=== PATIENT | female | born 1985 | race Hispanic/Latino ===

== ENCOUNTER 2022-01-08 11:15 | Day surgery (SDC) | payer BC, SELFPAY ==
--- NOTE | 2022-01-07 12:30 | PCM.HP.BLA ---
History and Physical Date of Admission: 01/08/22 HPI: The patient is a 36 year old female presenting for pre-operative visit. She is scheduled for Hysteroscopy D&C, for AUB on 01/08/22. Procedure discussed along with risks, benefits and complications. Other alternatives discussed for management. Consent form signed? Yes. ? ? PAST MEDICAL HISTORY PAST MEDICAL HISTORY Diagnosis Date ? Essential hypertension ? ? ? PAST SURGICAL HISTORY PAST SURGICAL HISTORY Procedure Laterality Date ? ADENOIDECTOMY SECONDARY AGE 10/> ? CURRENT MEDICATIONS Current Outpatient Medications Medication Sig Dispense Refill ? losartan (COZAAR) 25 mg tablet Take 1 tablet by mouth once daily. 90 tablet 3 ? EPINEPHrine (EPIPEN) 0.3 mg/0.3 mL auto-injector Inject into thigh as directed. May repeat once if necessary. ? ? ? miSOPROStol (CYTOTEC) 200 mcg tablet Take 1 tablet by mouth as directed. Insert one tablet vaginally the night before procedure. Take one tablet orally the morning of procedure. (Patient not taking: Reported on 01/07/2022 ) 2 tablet 0 ? medroxyPROGESTERone (PROVERA) 10 mg tablet Take 1 tablet by mouth once daily. (Patient not taking: Reported on 01/07/2022 ) 10 tablet 0 ? No current facility-administered medications for this visit. ? ? ALLERGIES: Nickel ? PERSONAL HISTORY: SOCIAL HISTORY Social History ? Tobacco Use ? Smoking status: Never Smoker ? Smokeless tobacco: Never Used Substance Use Topics ? Alcohol use: Yes ? ? Comment: 3-4 beverages on occasion, no routine use ? Drug use: Not on file ? FAMILY HISTORY: FAMILY HISTORY FAMILY HISTORY Problem Relation Age of Onset ? Hypothyroidism Mother ? ? other (other) Father ? ? Hypertension Father ? ? Hypertension Sister ? ? Hypertension Brother ? ? Hypertension Brother ? ? Lung Cancer Maternal Grandmother ? ? Breast Cancer Maternal Aunt ? ? Breast Cancer Maternal Aunt ? ? ? REVIEW OF SYMPTOMS: GENERAL: denies fevers or chills ENDOCRINOLOGY: has not been on steroids Cardiology : denies palpitations or chest pain Respiratory: denies SOB or cough Hematology: denies history of prolonged bleeding or easy bruising or VTE Allergy: Denies history of personal or family history of allergy to anesthesia ? PHYSICAL EXAMINATION: ? VITALS: There were no vitals taken for this visit. ? GENERAL: The patient is well nourished, well hydrated in no acute distress. , The patient is oriented to time, place, and person. NECK: Supple. No lynphadenopathy, normal thyroid, no thyromegaly. LUNGS: Clear to auscultation bilaterally. no wheezes, rhonchi or rales HEART: Regular rate and rhythm, Normal heart sounds and No murmurs or gallops ? ? IMPRESSION: AUB- only spotting in 18 months,stenotic cervix ? PLAN: The risks/benefits/alternatives and personal involved for the planned hsyteroscopy D&C with cervical dilation were reviewed with the patient. Her questions were answered to her satisfaction and she desires to proceed. Consent was signed. I reviewed with her postop instructions and expectations. ? ? I have reviewed and updated past medical and surgical history, medications and allergies Assessment & Plan Assessment/Plan (1) Abnormal uterine bleeding (AUB): (2) Stenosis, cervix:
[2022-01-08] VITALS (7 sets, daily range): BP systolic 132–151; BP diastolic 86–108; PULSE 58–74; RESP 16–18; TEMP 36.1–36.9; O2SAT 97–100; BMI 27.3
[2022-01-08] MEDS: Acetaminophen 500 MG Tablet 1000 MG PO (11:53)
[2022-01-08 11:55] LABS: Internal QC Validated? YES +Cl - CLEAR BKGD
[2022-01-08 11:58] LABS: Pregnancy, Urine Negative Negative
[2022-01-08] MEDS: Lactated Ringers 1,000 ML 70 ML IV (11:58)
[2022-01-08] MEDS: Ketorolac 30 MG/ML Syringe IV (11:59)
--- NOTE | 2022-01-08 13:00 | EMB_PTH ---
PATIENT: IVONNE RAY LOC: [facility] – [place] U#:[id number] AGE/SX: 36/F ROOM: RE01/08/[address]: Dr. Breann Eaton MD : [id number] BED: DIS: 01/08/2022 SPEC #: [id number] RECD: 01/08/22 14:01 STATUS: MAYE CARRASQUILLO #: [id number] NENITA: 01/08/22 13:[address]: Breann Eaton DEPT: SURGICAL PATHOLOGY RECD BY: Kaya Barroso ENTERED: 01/09/22 09:14 SP TYPE: ENDOM BX/C OMAR DR: CESAR Vaca Tissues: Endometrium, NOS Procedures: Surgery Specimen Level IV HEADER OPERATION: Hysteroscopy, dilation and curettage, cervical dilation PRE-OP DIAGNOSIS: Abnormal uterine bleeding, stenosis cervix TISSUE SUBMITTED: Endometrial curettings MICROSCOPIC DIAGNOSIS Endometrium, curettings: Disordered proliferative endometrium to focal simple hyperplasia without atypia. AM:tere 01/13/2022 MICROSCOPIC DESCRIPTION Slides are reviewed. GROSS DESCRIPTION Received in fixative is one container labeled with the patient's name and designated endometrial curettings. The specimen consists of multiple fragments of hemorrhagic soft tissue that in aggregate measure 2.5 x 1 x 0.1 cm. The specimen is totally submitted in one cassette. / SJ:tere 01/09/2022 TC:5 CPT: 39396
--- NOTE | 2022-01-08 13:07 | DCINST_ITS ---
Discharge Instructions Diet Discharge Diet: No restrictions Activity May resume sexual activity in: 2 weeks Lifting Restrictions: none Dressing / Incision Call your doctor if your incision/area has: Sudden Increased Bleeding and Foul Smelling Discharge Call your doctor if you observe: Fever of 101 or Higher and Using more than 1 pad per hour (for 2 hrs in a row) Follow Up Care Please Follow Up With: Breann Eaton MD When: 2-4 weeks or as needed. Call [phone] to make an appointment or with any concerns. Test Results: Test results from this visit will be discussed in further detail at your follow-up appointment, if applicable. Discharge Plan Admission Primary Reason for Your Visit: hysteroscopy D&C Attending Provider: Breann Eaton Primary Care Provider: Netta Shukla NP Discharge Orders/Prescriptions Prescriptions: No Action NK RF: 0 Referrals / Follow Up: Netta Shukla NP, [facility] [employer] [employer] [facility] [Primary Care Provider] - Disposition Disposition (needs filled in before D/C Order can be placed): Home, Self Care
[2022-01-08] MEDS: Vasopressin 20 UNITS/ML Vial (13:17)
--- NOTE | 2022-01-08 13:29 | OP.PCM_ITS ---
Problems Associated Problem List Diagnoses (1) Stenosis, cervix: (2) Abnormal uterine bleeding (AUB): Report of Operation Date of Procedure: 01/08/22 Pre-Operative Diagnosis: AUB, cervical stenosis Post-Operative Diagnosis: same Surgery/Procedure Performed:: Hysteroscopy D&C Description of Surgical Findings:: normal cervix and vagina, normal endometrial cavity Surgeon: Breann Eaton technical services representative: None Type of Anesthesia: MAC/Supplemental/Local Anesthesiologist: Nabor Granda Special Medications: none Specimen's removed: endometrial curettings Drains: none Estimated Blood Loss (mL): 5 Fluids Replaced: 500 Description of Procedure: The patient was taken to the OR where she was prepped and draped in dorsal lithotomy position. The weighted speculum was placed in the vagina and the anterior lip of the cervix was grasped with a single-tooth tenaculum. A paracervical block was administered with 7 cc of dilute vasopressin solution of 20 cc of vasopressin and 40 cc of injectable saline. The cervix was dilated serially with Hegar dilators. The 5mm hysteroscope was placed into the uterine cavity and the above findings were noted. Bilateral tubal ostia were identified. The hysteroscope was removed. A gentle sharp curettage was done of the uterine cavity. The instruments were removed from the vagina. The specimen was handed off and sent to pathology. All sponge and needle counts were correct. Vaginal sweep was performed by me. The patient was awakened and taken to the recovery room in stable condition. Hysteroscopic ins: 300cc normal saline Hysteroscopic outs:100cc Findings: Endometrial cavity: Normal, no fibroids or polyps noted Cervix: Normal Vagina: Normal Grafts/Implants Used: none Procedure Start Time: 13:17 Procedure Stop Time: 13:23 Complications none Admit VTE Documentation VTE Present on Admission: No VTE Mechan Device Prophylaxis: SCD's VTE Pharm Prophylaxis ordered?: No Reason prophylaxis not ordered:: Procedure Not Indicated
== END 2022-01-08 14:33 | disposition home or self-care (01) ==
LOC: SDC 11:21 → AC 11:21
PROVIDERS: Anesthesiology; PCP Clinical Nurse Specialist; Visit Provider Obstetrics & Gynecology
PROC: 0UDB8ZZ Extraction of Endometrium, Via Natural or Artificial Opening Endoscopic (ICD-10-PCS; CPT 58558; principal; 2022-01-08 12:50)
DX: N85.01 Benign endometrial hyperplasia (principal); N93.9 Abnormal uterine and vaginal bleeding, unspecified; N88.2 Stricture and stenosis of cervix uteri; I10 Essential (primary) hypertension; Z79.899 Other long term (current) drug therapy
CPT/HCPCS: 58558; 00952; 81025; 88305; J7120; J2405